=== PATIENT | female | born 1970 | race Caucasian/White ===

== ENCOUNTER 2017-07-29 19:00 | Emergency (ER) | payer MEDICAID ==
[~2017-07-29] VITALS: Ht 162.6 cm; Wt 93.6 kg
[2017-07-29 19:15] VITALS: BP 138/99
--- NOTE | 2017-07-29 19:25 | NUR ---
PATIENT AMBULATED TO ER BED 3.
--- NOTE | 2017-07-29 19:27 | NUR ---
PATIENT IS A 46 Y/O FEMALE WHO PRESENTS TO THE ED C/O DYSURIA. PT STATES THAT HER URINE HAS BEEN HURTING X2 DAYS. PT REPORTS 10/10 ACHING VAGINAL PAIN THAT DOES NOT RADIATE. PT DENIES CP, SOB, REPORTS NAUSEA DENIES VOMITING/DIARRHEA. PT AAOX4, RR EVEN/UNLABORED, LUNG SOUNDS CLEAR BL. PT REPOSITIONED FOR COMFORT, BED IN LOWEST POSITION. ER MD DR. CLEVELAND NOTIFIED. WILL CONTINUE TO MONITOR.
--- NOTE | 2017-07-29 19:35 | NUR ---
DIPAK RN MILITARY LOGISTICS SPECIALIST DR. CLEVELAND FOR PELVIC EXAM.
--- NOTE | 2017-07-29 19:40 | NUR ---
Pelvic exam performed by dr juarez with me at bedside for entire examination. Patient tolerated procedure well. Patient assisted to position of comfort after examination. Wet mount collected by dr juarez and brown to lab.
[2017-07-29] MEDS ORDERED: IBUPROFEN 800 MG TAB PO ONE (19:50)
[2017-07-29 20:12] LABS: APPEARANCE,URINE CLOUDY (CLEAR); BILIRUBIN,URINE NEGATIVE (NEGATIVE); BLOOD, URINE 3+ (NEGATIVE); COLOR,URINE YELLOW (YELLOW); LEUKOCYTE ESTERASE ,URINE 1+ (NEGATIVE); NITRITE, URINE NEGATIVE (NEGATIVE); UGLUCOSE NEGATIVE (NEGATIVE)
[2017-07-29 20:22] LABS: RBC,URINE 50-80 /HPF (0-5); WBC,URINE TOO MANY TO COUNT /HPF (0-5)
[2017-07-29 21:09] VITALS: BP 125/82
--- NOTE | 2017-07-29 21:09 | NUR ---
Patient discharged with v/s stable. Written and verbal after care instructions given and explained. Patient alert, oriented and verbalized understanding of instructions. Ambulatory with steady gait. All questions addressed prior to discharge. ID band removed. Patient advised to follow up with PMD. Rx of CIPRO 250MG, MIRALAX POWDER, DIFLUCAN 150MG given. Patient educated on indication of medication including possible reaction and side effects. Opportunity to ask questions provided and answered.
== END 2017-07-29 21:09 | disposition home or self-care (01) ==
LOC: MED 19:00
DX: K62.3 Rectal prolapse (principal); N39.0 Urinary tract infection, site not specified; B37.9 Candidiasis, unspecified; K59.00 Constipation, unspecified; R03.0 Elevated blood-pressure reading, without diagnosis of hypertension; E11.9 Type 2 diabetes mellitus without complications; Z88.0 Allergy status to penicillin
CPT/HCPCS: 81001; 81025; 87086; 87210; 99284

== ENCOUNTER 2019-03-30 20:51 | Emergency (ER) | payer MEDICAID ==
[~2019-03-30] VITALS: Ht 154.9 cm; Wt 94.8 kg
[2019-03-30 21:00] VITALS: BP 148/78
[2019-03-30 23:06] LABS: BASOPHILS % (AUTO) 0.4 % (0.0-2.0); EOSINOPHILS # (AUTO) 0.1 K/uL (0-0.4); EOSINOPHILS % (AUTO) 1.3 % (0.0-4.0); HEMOGLOBIN 14.4 g/dL (12.0-16.0); LYMPHOCYTES # (AUTO) 2.7 K/uL (2.5-16.5); LYMPHOCYTES % (AUTO) 27.6 % (20.5-51.1); MEAN CORPUSCULAR HEMOGLOBIN 30 pg (27-31); MEAN CORPUSCULAR HGB CONC 33 g/dL (33-37); MEAN CORPUSCULAR VOLUME 90.8 fL (80-94); MONOCYTES # (AUTO) 0.8 K/uL (0.8-1.0); MONOCYTES % (AUTO) 8.4 % (1.7-9.3); NEUTROPHILS # (AUTO) 6.1 K/uL (1.8-7.7); NEUTROPHILS % (AUTO) 62.3 % (42.2-75.2); PLATELET COUNT (AUTO) 287 K/uL (140-450); RED BLOOD CELL COUNT(AUTO) 4.84 MIL/uL (4.20-5.40); RED CELL DISTRIBUTION WIDTH 13.3 % (11.6-13.7); WHITE BLOOD COUNT (AUTO) 9.8 K/uL (4.8-10.8)
[2019-03-30 23:21] LABS: APPEARANCE,URINE CLEAR (CLEAR); BILIRUBIN,URINE NEGATIVE (NEGATIVE); BLOOD, URINE NEGATIVE (NEGATIVE); COLOR,URINE YELLOW (YELLOW); LEUKOCYTE ESTERASE ,URINE NEGATIVE (NEGATIVE); NITRITE, URINE NEGATIVE (NEGATIVE); UGLUCOSE 3+ (NEGATIVE)
[2019-03-30 23:31] LABS: PROTHROMBIN TIME 8.6 secs (10.8-13.4)
[2019-03-30 23:33] LABS: ALBUMIN 3.5 g/dL (3.4-5.0); ANION GAP 14.2 (8-16); CARBON DIOXIDE 27.9 mmol/L (21-32); CREATININE 0.7 mg/dL (0.6-1.3); POTASSIUM 4.1 mmol/L (3.5-5.1); TOTAL BILIRUBIN 0.2 mg/dL (0.0-1.0)
[2019-03-31 00:06] LABS: RBC,URINE NONE SEEN /HPF (0-5); WBC,URINE NONE SEEN /HPF (0-5)
[2019-03-31] MEDS: NACL 0.9% 1,000 ML IV ONE ×2 (00:36→01:50)
[2019-03-31] MEDS: MORPHINE SULFATE 4 MG/ML SYR IVP ONE (02:38)
[2019-03-31] MEDS ORDERED: MORPHINE SULFATE 2 MG/ML SYR ONE (03:56)
[2019-03-31] MEDS: MORPHINE SULFATE 2 MG/ML SYR IVP ONE (04:25)
[2019-03-31] MEDS: ACETAMINOPHEN EXTRA STRENGTH 500 MG TAB PO ONE (04:35)
[2019-03-31] MEDS: ACETAMINOPHEN 650 MG/20.3 ML UDC PO STA (04:35)
[2019-03-31 05:31] VITALS: BP 140/89
== END 2019-03-31 06:05 | disposition home or self-care (01) ==
LOC: MED 20:51
DX: R07.89 Other chest pain (principal); M25.512 Pain in left shoulder; E11.9 Type 2 diabetes mellitus without complications; Z88.0 Allergy status to penicillin
CPT/HCPCS: 36415; 71045; 71275; 74174; 80053; 81001; 81025; 82553; 82948; 83880; 84484; 85025; 85610; 85730; 93005; 96374; 99284; J2270; Q0092; Q9967

== ENCOUNTER 2020-10-22 23:38 | Emergency (ER) | payer MEDICAID ==
[~2020-10-22] VITALS: Ht 157.5 cm; Wt 90.7 kg
--- NOTE | 2020-10-22 23:48 | NUR ---
TO BED AMBULATORY
--- NOTE | 2020-10-23 01:10 | NUR ---
PT. IS A 49 Y/O FEMALE THAT CAME INTO ED WITH C/O OF RIGHT BREAST PAIN ON AEROLA. PT. STATES YESTERDAY NIGHT THAT PAIN STARTED. PT. RATES HER PAIN AT A 7/10 ON THE PAIN SCALE AT THIS TIME. PT. STATES THAT SHE HAS HAD DIARRHEA FOR THE PAST 5-6 DAYS AND TODAY HAS HAD 7-8 BOWEL MOVEMENTS. DENIES N/V; SKIN IS PINK/WARM/DRY; AAOX4 WITH EVEN AND STEADY GAIT; HR EVEN AND REGULAR; PT DENIES ANY FEVER, CP, SOB, OR COUGH AT THIS TIME; VSS; PATIENT POSITIONED FOR COMFORT WITH AT BEDSIDE; HOB ELEVATED; BEDRAILS UP X2; BED DOWN. ER MD MADE AWARE OF PT STATUS. PMH: DM 2, HYPOTENSION ALLERGIES: PENICILLINS
[2020-10-23] MEDS ORDERED: KETOROLAC 30 MG/ML VIAL IM ONE (02:15)
[2020-10-23 03:13] LABS: BILIRUBIN,URINE NEGATIVE (NEGATIVE); BLOOD, URINE 1+ (NEGATIVE); COLOR,URINE YELLOW (YELLOW); LEUKOCYTE ESTERASE ,URINE 1+ (NEGATIVE); NITRITE, URINE POSITIVE (NEGATIVE); UGLUCOSE TRACE (NEGATIVE)
[2020-10-23 03:23] LABS: APPEARANCE,URINE HAZY (CLEAR)
[2020-10-23 03:25] LABS: CALCIUM OXALATE CRYSTALS,UR 30-50 /HPF (None Seen); RBC,URINE 0-5 /HPF (0-5)
--- NOTE | 2020-10-23 03:30 | NUR ---
ULTRASOUND AT BEDSIDE, CHAPPERONED BY JOSEPH PEREZ (MYSELF)
--- NOTE | 2020-10-23 03:50 | NUR ---
PT. AMBULATED WITH STEADY GAIT TO BATHROOM.
--- NOTE | 2020-10-23 04:33 | NUR ---
PT. LAYING COMFORTABLY IN SUPINE POSITION IN BED, LOOKING AT PHONE. VOICES NO COMPLAINTS
[2020-10-23] MEDS ORDERED: NAPR-54 PO (05:10)
[2020-10-23] MEDS ORDERED: NITR100C7 PO (05:10)
[2020-10-23 05:16] VITALS: BP 136/81
--- NOTE | 2020-10-23 05:16 | NUR ---
Patient discharged with v/s stable. Written and verbal after care instructions given and explained. Patient alert, oriented and verbalized understanding of instructions. Ambulatory with steady gait. All questions addressed prior to discharge. ID band removed. Patient advised to follow up with PMD. Rx of NAPROSYN AND MACROBID given. Patient educated on indication of medication including possible reaction and side effects. Opportunity to ask questions provided and answered.
--- NOTE | 2020-10-25 13:01 | NUR ---
LATE ENTRY---Urine culture results received from lab. Results shown to Dr. CEDEÑO . No new orders needed at this time. Treatment appropriate. Copy placed in C&S folder.
== END 2020-10-23 05:16 | disposition home or self-care (01) ==
LOC: MED 23:38
DX: N64.4 Mastodynia (principal); E11.9 Type 2 diabetes mellitus without complications; Z88.0 Allergy status to penicillin; Z79.899 Other long term (current) drug therapy
CPT/HCPCS: 71045; 76641; 81001; 81025; 87086; 96372; 99285; J1885

== ENCOUNTER 2021-06-02 20:24 | Emergency (ER) | payer MEDICAID ==
[~2021-06-02] VITALS: Ht 157.5 cm; Wt 94.3 kg
[~2021-06-02 20:24] MED LIST: NAPR-54 PO; NITR100C7 PO
[2021-06-02 20:41] VITALS: BP 148/77
--- NOTE | 2021-06-02 23:34 | NUR ---
PATIENT CLEARED FOR DISCHARGE AT THIS TIME. ADVISED TO FOLLOW UP WITH PCP AND RETURN IF CONDITION WORSENS. NO OTHER COMPLAINTS OR CONCERNS AT THIS TIME FOLLOWING [facility] TEACHING.
== END 2021-06-02 23:34 | disposition home or self-care (01) ==
LOC: MED 20:24
DX: H00.14 Chalazion left upper eyelid (principal); E11.9 Type 2 diabetes mellitus without complications; Z88.0 Allergy status to penicillin; Z79.899 Other long term (current) drug therapy
CPT/HCPCS: 99282

== ENCOUNTER 2021-08-07 20:17 | Inpatient (IN) | payer MEDICAID ==
[~2021-08-07] VITALS: Ht 152.4 cm; Wt 92.5 kg
[2021-08-07 20:24] VITALS: BP 150/90
--- NOTE | 2021-08-07 20:32 | NUR ---
patient to bed 4 ambulatory
--- NOTE | 2021-08-07 20:36 | NUR ---
Patient BIB by family from home. C/O chest pain x 5 days. Patient reported, had chest pain on and off for 4-5 days, today worse pain. A/O,X4, left chest pain, pressure, dificulty breathing (per patient) , pain rate 7/10, no radiate, place patient on nurse monitoring and pulse ox, on oxygen canular 2 L/Min.
--- NOTE | 2021-08-07 20:56 | NUR ---
Patient 's family at bedside.
[2021-08-07 21:02] LABS: BASOPHILS % (AUTO) 0.3 % (0.0-2.0); EOSINOPHILS # (AUTO) 0.1 K/uL (0-0.4); EOSINOPHILS % (AUTO) 1.1 % (0.0-4.0); HEMATOCRIT 43.6 % (36-48); HEMOGLOBIN 14.6 g/dL (12.0-16.0); LYMPHOCYTES # (AUTO) 3.5 K/uL (2.5-16.5); LYMPHOCYTES % (AUTO) 35.9 % (20.5-51.1); MEAN CORPUSCULAR HEMOGLOBIN 30 pg (27-31); MEAN CORPUSCULAR HGB CONC 34 g/dL (33-37); MEAN CORPUSCULAR VOLUME 90.1 fL (80-94); MONOCYTES # (AUTO) 0.8 K/uL (0.8-1.0); MONOCYTES % (AUTO) 8.1 % (1.7-9.3); NEUTROPHILS # (AUTO) 5.3 K/uL (1.8-7.7); NEUTROPHILS % (AUTO) 54.6 % (42.2-75.2); PLATELET COUNT (AUTO) 285 K/uL (140-450); RED BLOOD CELL COUNT(AUTO) 4.84 MIL/uL (4.20-5.40); RED CELL DISTRIBUTION WIDTH 13.4 % (11.6-13.7); WHITE BLOOD COUNT (AUTO) 9.7 K/uL (4.8-10.8)
--- NOTE | 2021-08-07 21:02 | NUR ---
Dr. Antonio examining patient.
--- NOTE | 2021-08-07 21:02 | NUR ---
X-Ray at bedside.
[2021-08-07] MEDS ORDERED: ASPIRIN 325 MG TAB PO ONE (21:10)
[2021-08-07] MEDS ORDERED: NITROGLYCERIN 0.4 MG TAB SL ONE (21:10)
[2021-08-07 21:25] LABS: ALBUMIN 3.5 g/dL (3.4-5.0); ANION GAP 11.7 (8-16); CARBON DIOXIDE 27.3 mmol/L (21-32); CREATININE 0.8 mg/dL (0.6-1.3); TOTAL BILIRUBIN 0.2 mg/dL (0.0-1.0)
[2021-08-07 21:34] LABS: PROTHROMBIN TIME 8.8 secs (10.8-13.4)
[2021-08-07] MEDS ORDERED: NACL 0.9% 1,000 ML IV ONE (21:40)
--- NOTE | 2021-08-07 22:03 | NUR ---
Medication Reconcile-Done
--- NOTE | 2021-08-07 22:03 | NUR ---
COVID-19 rapid swabs collected and sent to lab.
--- NOTE | 2021-08-07 22:09 | NUR ---
Spoke with patient and her family for admission and treatment plans.
--- NOTE | 2021-08-07 22:47 | NUR ---
Blood for labwork drawn from left arm per behaviour support teacher. Patient tolerated well.
[2021-08-07] MEDS ORDERED: METF-1253 PO (23:17)
[2021-08-07] MEDS ORDERED: guaiFENesin DM 200/20 MG-10 ML 10 ML UDC PO PRN (23:45)
[2021-08-07] MEDS ORDERED: POTASSIUM CHLORIDE 10 MEQ TABER PO PRN (23:45)
[2021-08-07] MEDS ORDERED: ONDANSETRON 4 MG/2 ML VIAL IM/IVP PRN (23:45)
[2021-08-07] MEDS ORDERED: DOCUSATE SODIUM 100 MG GELCAP PO PRN (23:45)
[2021-08-07] MEDS ORDERED: ZOLPIDEM 5 MG TAB PO PRN (23:45)
[2021-08-07] MEDS ORDERED: HYDROcodone/APAP 7.5/325 MG 1 TAB PO PRN (23:45)
[2021-08-07] MEDS ORDERED: NITROGLYCERIN 0.4 MG TAB SL PRN (23:50)
[2021-08-07] MEDS ORDERED: hydrALAZINE 20 MG/ML VIAL IVP PRN (23:50)
[2021-08-07] MEDS ORDERED: DEXTROSE 50% 50 ML SYR IVP PRN (23:50)
[2021-08-08] VITALS: BP 113/55
--- NOTE | 2021-08-08 00:11 | NUR ---
Patient appears to be resting comfortably in bed. Vital Signs within normal limits. Respirations even and unlabored.
[2021-08-08 00:33] LABS: CHOL/HDL RATIO 4.1 (1-4.5); MAGNESIUM 1.8 mg/dL (1.8-2.4); PHOSPHORUS 3.5 mg/dL (2.5-4.9)
[2021-08-08 00:34] LABS: FREE T4 (FREE THYROXINE) 1.04 ng/dL (0.76-1.46); THYROID STIMULATING HORMONE 2.18 uIU/mL (0.34-3.74)
--- NOTE | 2021-08-08 00:47 | NUR ---
Assisted patient to restroom.
--- NOTE | 2021-08-08 00:59 | NUR ---
Patient will be admitted to care of Dr. Agrawal. Admited to TELE. Will go to room 112A. Belongings list completed. Report to JOSEPH Whelan.
--- NOTE | 2021-08-08 02:37 | NUR ---
PATIENT TO FLOOR ROOM AIR TEMP 97.4 LUNGS CLEAR NO C/O OF CHEST PAIN HAS 22GA IN RIGHT F.A. PATIENT CAME FROM E.R TO FLOOR 0110 ALERT AWAKE NO DISTRESS NOTED. TO HANG NS AT 60 HOUR. WILL CHECK BLOOD SUGAR IN A.M.
[2021-08-08 04:00] VITALS: BP 115/55
[2021-08-08] MEDS: NACL 0.9% 1,000 ML IV SCH ×2 (04:00→16:25)
[2021-08-08 05:53] LABS: BASOPHILS % (AUTO) 0.4 % (0.0-2.0); EOSINOPHILS # (AUTO) 0.1 K/uL (0-0.4); EOSINOPHILS % (AUTO) 1.3 % (0.0-4.0); HEMATOCRIT 37.8 % (36-48); HEMOGLOBIN 12.6 g/dL (12.0-16.0); LYMPHOCYTES # (AUTO) 3.9 K/uL (2.5-16.5); LYMPHOCYTES % (AUTO) 40.5 % (20.5-51.1); MEAN CORPUSCULAR HEMOGLOBIN 30 pg (27-31); MEAN CORPUSCULAR HGB CONC 33 g/dL (33-37); MEAN CORPUSCULAR VOLUME 90.6 fL (80-94); MONOCYTES # (AUTO) 0.7 K/uL (0.8-1.0); MONOCYTES % (AUTO) 7.2 % (1.7-9.3); NEUTROPHILS # (AUTO) 4.9 K/uL (1.8-7.7); NEUTROPHILS % (AUTO) 50.6 % (42.2-75.2); PLATELET COUNT (AUTO) 261 K/uL (140-450); RED BLOOD CELL COUNT(AUTO) 4.17 MIL/uL (4.20-5.40); RED CELL DISTRIBUTION WIDTH 13.3 % (11.6-13.7); WHITE BLOOD COUNT (AUTO) 9.6 K/uL (4.8-10.8)
[2021-08-08 06:29] LABS: ANION GAP 10.2 (8-16); CARBON DIOXIDE 26.4 mmol/L (21-32); CREATININE 0.5 mg/dL (0.6-1.3); POTASSIUM 3.6 mmol/L (3.5-5.1)
--- NOTE | 2021-08-08 07:25 | NUR ---
RECEIVED REPORT FROM HOSPITALITY INTERN NURSE. PT. IS SEEN LYING ON THE BED, CHEST RISES WITH 2L O2 NC. SKIN IS WARM AND INTACT. IV SITE ON RIGHT FA ,22G. PT IS AMBULATORY. WILL CONTINUE TO MONITOR.
[2021-08-08] MEDS: BLOOD GLUCOSE MONITORING 1 DEV DEV FS SCH ×4 (07:30→21:28)
[2021-08-08 08:00] VITALS: BP 119/83
[2021-08-08] MEDS: PANTOPRAZOLE 40 MG TABEC PO SCH (08:51)
[2021-08-08] MEDS: ECOTRIN 81 MG TABEC PO SCH (08:51)
[2021-08-08] MEDS: metFORMIN 500 MG TAB PO SCH ×2 (08:51→18:04)
[2021-08-08] MEDS: INSULIN LISPRO SLIDING SCALE 100 UNITS/ML VIAL SUBQ PRN ×4 (08:56→21:30)
[2021-08-08] MEDS ORDERED: METOPROLOL 25 MG TAB PO SCH (09:00)
[2021-08-08] MEDS ORDERED: lisinopriL 5 MG TAB PO SCH (09:00)
--- NOTE | 2021-08-08 09:15 | NUR ---
PATIENT HAS BEEN SCREENED AND CATEGORIZED MODERATE NUTRITION RISK. PATIENT WILL BE SEEN WITHIN 3-5 DAYS OF ADMISSION. [address]IL[address]
--- NOTE | 2021-08-08 11:00 | NUR ---
PT LYING ON HER BED, AWAKE. PT IS STABLE. WILL CONTINUE TO MONITOR.
[2021-08-08] MEDS: NIACIN 500 MG TAB PO SCH ×2 (12:41→21:28)
[2021-08-08 15:27] LABS: BILIRUBIN,URINE NEGATIVE (NEGATIVE); BLOOD, URINE 2+ (NEGATIVE); COLOR,URINE YELLOW (YELLOW); LEUKOCYTE ESTERASE ,URINE NEGATIVE (NEGATIVE); NITRITE, URINE NEGATIVE (NEGATIVE); UGLUCOSE 3+ (NEGATIVE)
[2021-08-08 15:37] LABS: APPEARANCE,URINE CLOUDY (CLEAR)
[2021-08-08 16:00] VITALS: BP 108/64
--- NOTE | 2021-08-08 16:27 | NUR ---
DID NOT CHANGE THE IV FLUIDS SINCE THERE'S STILL 400ML OF FLUIDS. WILL CHANGE AFTER THE IV FLUID IS EMPTY.
[2021-08-08] MEDS: ACETAMINOPHEN 325 MG TAB PO PRN (16:51)
--- NOTE | 2021-08-08 16:51 | NUR ---
PT COMPLAINED OF HEADACHE, WITH A PAINSCALE LEVEL OF 4 OUT OF 10. TYLENOL GIVEN ORDERED.
[2021-08-08] MEDS ORDERED: ATORVASTATIN 20 MG TAB PO SCH (17:00)
[2021-08-08 18:19] LABS: BARBITURATE, URINE NEGATIVE ng/ml (NEG <=200); BENZODIAZEPINE, URINE NEGATIVE ng/mL (NEG <=200); CANNABINOID, URINE NEGATIVE ng/mL (NEG <=50); COCAINE, URINE NEGATIVE ng/mL (NEG <=300); OPIATE, URINE NEGATIVE ng/mL (NEG <=2000); PHENCYCLIDINE SCREEN,URINE NEGATIVE ng/mL (NEG <=25)
--- NOTE | 2021-08-08 19:25 | NUR ---
GAVE REPORT TO ANNEALING FURNACE TENDER NURSE, PT IS STABLE. PLAN OF CARE DISCUSSED.
--- NOTE | 2021-08-08 20:00 | NUR ---
RECEIVED REPORT FROM DAY SHIFT NURSE. PT. IS SEEN RESTING ON THE BED, PT ON ROOM AIR, BREATHING EQUAL AND UNLABORED. SKIN IS WARM AND INTACT. IV SITE ON RIGHT FA ,22G. PT IS AMBULATORY. ALL PRECAUTIONS IN PLACE.WILL CONTINUE TO MONITOR.
--- NOTE | 2021-08-08 20:30 | NUR ---
DUE MEDICATIONS GIVEN. BLOOD SUGAR WAS 169. 2 UNITS INSULIN GIVEN PER PROTOCOL. ALL PRECAUTIONS IN PLACE. CALL LIGHT WITHIN REACH. WILL CONTINUE TO MONITOR.
[2021-08-08 21:14] LABS: WBC,URINE 0-5 /HPF (0-5)
[2021-08-09] VITALS: BP 103/65
--- NOTE | 2021-08-09 | NUR ---
PT ASLEEP. BREATHING EQUAL AND UNLABORED.NO DISTRESS NOTED. ALL PRECAUTIONS IN PLACE. WILL CONTINUE TO MONITOR.
--- NOTE | 2021-08-09 02:52 | NUR ---
PT ASLEEP. BREATHING EQUAL AND UNLABORED.NO DISTRESS NOTED. ALL PRECAUTIONS IN PLACE. WILL CONTINUE TO MONITOR.
[2021-08-09 05:38] LABS: BASOPHILS % (AUTO) 0.6 % (0.0-2.0); EOSINOPHILS # (AUTO) 0.1 K/uL (0-0.4); HEMATOCRIT 42.8 % (36-48); LYMPHOCYTES # (AUTO) 3.1 K/uL (2.5-16.5); LYMPHOCYTES % (AUTO) 41.4 % (20.5-51.1); MEAN CORPUSCULAR HEMOGLOBIN 30 pg (27-31); MEAN CORPUSCULAR HGB CONC 33 g/dL (33-37); MEAN CORPUSCULAR VOLUME 90.4 fL (80-94); MONOCYTES # (AUTO) 0.6 K/uL (0.8-1.0); MONOCYTES % (AUTO) 8.1 % (1.7-9.3); NEUTROPHILS # (AUTO) 3.6 K/uL (1.8-7.7); NEUTROPHILS % (AUTO) 47.9 % (42.2-75.2); PLATELET COUNT (AUTO) 262 K/uL (140-450); RED BLOOD CELL COUNT(AUTO) 4.74 MIL/uL (4.20-5.40); RED CELL DISTRIBUTION WIDTH 13.6 % (11.6-13.7); WHITE BLOOD COUNT (AUTO) 7.4 K/uL (4.8-10.8)
--- NOTE | 2021-08-09 06:25 | NUR ---
PT IS STABLE. NO ACUTE EVENTS THROUGHOUT THE NIGHT. NO S/SX OF DISTRESS NOTED. BREATHING EQUAL AND UNLABORED. ALL SAFETY PRECAUTIONS IN PLACE. CALL LIGHT WITHIN REACH. WILL ENDORSE TO AM SHIFT NURSE.
[2021-08-09 06:27] LABS: ANION GAP 12.2 (8-16); CARBON DIOXIDE 25.4 mmol/L (21-32); CREATININE 0.5 mg/dL (0.6-1.3); POTASSIUM 3.6 mmol/L (3.5-5.1)
[2021-08-09] MEDS: BLOOD GLUCOSE MONITORING 1 DEV DEV FS SCH (06:37)
[2021-08-09] MEDS: INSULIN LISPRO SLIDING SCALE 100 UNITS/ML VIAL SUBQ PRN (06:38)
--- NOTE | 2021-08-09 07:20 | NUR ---
PATIENT ALERT WALKING GOING TO TOILET WHEN WE DO FIRST ROUND. RECEIVED ENDORSEMENT FROM APPAREL DESIGNER NURSE FOR CONTINUITY OF CARE. ALL SAFETY MEASURE IN PLACE.
[2021-08-09 08:00] VITALS: BP 135/71
--- NOTE | 2021-08-09 08:00 | NUR ---
Patient's Plan of Care was discussed and reviewed with SIDE PIECE COVERER: CHELSEY MILLAN
[2021-08-09 08:08] LABS: T4 (THYROXINE) 8.7 ug/dL (4.5-12.0)
[2021-08-09] MEDS ORDERED: ATORVASTATIN 20 MG TAB PO SCH (09:00)
[2021-08-09] MEDS ORDERED: lisinopriL 10 MG TAB PO SCH (09:00)
--- NOTE | 2021-08-09 09:00 | NUR ---
AT BED SIDE.
[2021-08-09] MEDS ORDERED: ASPI-1822 PO (09:07)
[2021-08-09] MEDS ORDERED: LISI-486 PO (09:07)
[2021-08-09] MEDS ORDERED: ATOR20TA PO (09:07)
[2021-08-09] MEDS ORDERED: METF-1253 PO (09:07)
[2021-08-09] MEDS ORDERED: GLIP10TE PO (09:07)
[2021-08-09] MEDS ORDERED: MECL-303 PO (09:09)
[2021-08-09] MEDS ORDERED: IBUP-2213 PO (09:09)
[2021-08-09] MEDS: ACETAMINOPHEN 325 MG TAB PO PRN (09:09)
[2021-08-09] MEDS: NIACIN 500 MG TAB PO SCH (09:09)
[2021-08-09] MEDS: ECOTRIN 81 MG TABEC PO SCH (09:10)
[2021-08-09] MEDS: PANTOPRAZOLE 40 MG TABEC PO SCH (09:10)
[2021-08-09] MEDS: metFORMIN 500 MG TAB PO SCH (09:13)
[2021-08-09] MEDS: NACL 0.9% 1,000 ML IV SCH (09:18)
--- NOTE | 2021-08-09 09:19 | NUR ---
GIVEN ALL DUE MEDICATION.
--- NOTE | 2021-08-09 09:45 | NUR ---
PT IS AMBULATING WITH HIS . PT TOLERATING WELL.
[2021-08-09 10:09] VITALS: BP 127/78
--- NOTE | 2021-08-09 10:32 | NUR ---
INFORMED PT THAT SHE ALREADY HAS A DISCHARGE ORDER FROM THE DR. PT ASKED ABOUT THE MEDS ORDERED HOME. GAVE PT A QUICK BREAKDOWN OF MEDS. PT SHOWED EXCITEMENT TO GO HOME.
--- NOTE | 2021-08-09 10:46 | NUR ---
DISCHARGE PAPER DISCUSSED WITH THE PT. PT ASKED QUESTIONS. AGREED TO PICK-UP MEDS TO [facility] ADDRESSED TO THE PHONE NUMBER ON THE DISCHARGE PAPER. VERBALIZED UNDERSTANDING. PT GETTING READY TO GO HOME WITH THE . PT ON STABLE CONDITION.
--- NOTE | 2021-08-09 11:05 | NUR ---
PT DC HOME. PT LEFT WITH . REMOVED IV CATHETER IS INTACT. REMOVED WRIST BAND. ALL BELONGINGS TAKEN UPON DC. PT IS STABLE.
--- NOTE | 2021-08-09 12:45 | NUR ---
DC PLANNING: THE PATIENT PRESENTED TO THE ER WITH C/O CHEST PAIN X 5 DAYS, SOB AND NUMBNESS/TINGLING OF LEFT ARM. H/O NE, HTN AND DM, EKG SHOWS RBBB, NEGATIVE FOR STEMI. TROPONINS WNL'S, CHEST PAIN IMPROVED WITH ASA AND NITROGLYCERIN. ADMITTED FOR ACS W/U, ECHO SHOWS LVEF OF 60-65%, CARDIOLOGY NOTES STATES THAT ACS IS RULED OUT AND TO CONTINUE ASA AND STATINS AND MADE RECOMMENDATIONS FOR OP MEDICATION MODIFICATION. PATIENT CLEARED TO DC HOME TODAY, CM WILL FOLLOW.
== END 2021-08-09 11:05 | disposition home or self-care (01) | DRG 203 ==
LOC: MED 20:17 → MTU 22:16
PROVIDERS: ADMIT Family Medicine; ATTEND Family Medicine
DX: M94.0 Chondrocostal junction syndrome [Tietze] (principal); E11.65 Type 2 diabetes mellitus with hyperglycemia; I20.9 Angina pectoris, unspecified; E78.2 Mixed hyperlipidemia; I10 Essential (primary) hypertension; Z20.822 Contact with and (suspected) exposure to COVID-19; I45.10 Unspecified right bundle-branch block; Z88.0 Allergy status to penicillin; Z79.84 Long term (current) use of oral hypoglycemic drugs; Z79.899 Other long term (current) drug therapy; Z90.49 Acquired absence of other specified parts of digestive tract; Z98.891 History of uterine scar from previous surgery
CPT/HCPCS: 36415; 70450; 71045; 80048; 80053; 80305; 81001; 82150; 82948; 83036; 83690; 83735; 83880; 84100; 84436; 84439; 84443; 84479; 84484; 85025; 85379; 85610; 85730; 87081; 93005; 96360; 96372; 99285; J1644; J7030